=== PATIENT | female | born 1975 | race African-American/Black ===

== ENCOUNTER 2017-06-25 14:40 | Emergency (ER) | payer OTHER ==
[~2017-06-25] VITALS: Ht 152.4 cm; Wt 58.1 kg
== END 2017-06-25 15:45 | disposition home or self-care (01) ==
LOC: ED 14:40
DX: K52.9 Noninfective gastroenteritis and colitis, unspecified (principal)
CPT/HCPCS: 87015; 87045; 87899; 99282

== ENCOUNTER 2020-10-06 09:50 | Emergency (ER) | payer OTHER ==
[~2020-10-06] VITALS: Ht 152.4 cm; Wt 68.0 kg
[2020-10-06 10:09] VITALS: TEMP 98.6
[2020-10-06 10:49] LABS: PLATELET COUNT 450 K/uL (152-353)
[2020-10-06 12:00] VITALS: BP 117/69
== END 2020-10-06 13:07 | disposition home or self-care (01) ==
LOC: ED 09:50
PROVIDERS: Family Medicine
DX: D64.89 Other specified anemias (principal); M54.31 Sciatica, right side
CPT/HCPCS: 36415; 80053; 81000; 85007; 85027; 99283